=== PATIENT | male | born 1940 | race African-American/Black ===

== ENCOUNTER 2017-02-14 05:41 | Day surgery (SDC) | payer BC, OTHER ==
[~2017-02-14] VITALS: Ht 177.8 cm; Wt 83.6 kg
[~2017-02-14 05:41] MED LIST: ASPI81 PO; ATEN25 PO; ATOR40TA28 PO; BACI3.5O4 OP; CEPH250 PO; DIPH50 PO; ESCI10TA PO; IBUP-1546 PO; LEVO25TA9 PO; LISI-661 PO; METF10002 PO; MULT-1203 PO; PANT40TA25 PO; PREG50 PO; TICA90TA PO; Triamcinolone Acet TP
[2017-02-14] MEDS ORDERED: SODIUM CHLORIDE 0.9% 1,000 ML IV ONE (06:30)
[2017-02-14 06:43] LABS: GLUCOSE,POINT OF CARE 93 MG/DL (70-110)
[2017-02-14] MEDS ORDERED: LIDOCAINE HCL/PF 2% 5 ML VIAL INJ ONE (12:00)
[2017-02-14] MEDS ORDERED: PROPOFOL 1% 20 ML VIAL IVP ONE (12:00)
[2017-02-15] MEDS ORDERED: SODIUM CHLORIDE 0.9% 1,000 ML IV ONE (14:18)
== END 2017-02-14 10:30 | disposition home or self-care (01) ==
LOC: SURGERY 05:41
PROVIDERS: ATTEND Specialist
DX: Z09 Encounter for follow-up examination after completed treatment for conditions other than malignant neoplasm (principal); K64.8 Other hemorrhoids; K29.50 Unspecified chronic gastritis without bleeding; K57.90 Diverticulosis of intestine, part unspecified, without perforation or abscess without bleeding; B96.81 Helicobacter pylori [H. pylori] as the cause of diseases classified elsewhere; M54.9 Dorsalgia, unspecified; I25.10 Atherosclerotic heart disease of native coronary artery without angina pectoris; B35.1 Tinea unguium; M75.91 Shoulder lesion, unspecified, right shoulder; N40.0 Benign prostatic hyperplasia without lower urinary tract symptoms; E11.9 Type 2 diabetes mellitus without complications; E78.5 Hyperlipidemia, unspecified; B35.9 Dermatophytosis, unspecified; F32.9 Major depressive disorder, single episode, unspecified; Z79.82 Long term (current) use of aspirin; Z79.899 Other long term (current) drug therapy; Z79.4 Long term (current) use of insulin; Z95.5 Presence of coronary angioplasty implant and graft
CPT/HCPCS: 43239; 45378; 82962; 88305; 88312; C1769; J2704; J3490; J7030

== ENCOUNTER 2020-05-16 18:11 | Inpatient (IN) | payer BC, MEDICARE, OTHER ==
[~2020-05-16] VITALS: Ht 170.2 cm; Wt 75.0 kg
[~2020-05-16 18:11] MED LIST changes: +ASPI-728 PO; -ASPI81 PO; +ATEN-73 PO; -ATEN25 PO; +ESCI-8 PO; -ESCI10TA PO; +IBUP-1506 PO; -IBUP-1546 PO; +METF-446 PO; -METF10002 PO; +PANT-31 PO; -PANT40TA25 PO
[2020-05-16] MEDS ORDERED: TRAM50TA4 PO (18:47)
[2020-05-16] MEDS ORDERED: PROP10TA73 PO (18:47)
[2020-05-16] MEDS ORDERED: BISA-151 PO (18:47)
[2020-05-16] MEDS ORDERED: SENN8.8S6 PO (18:47)
[2020-05-16] MEDS ORDERED: SUVO15TA PO (18:47)
[2020-05-16] MEDS ORDERED: DULA0.75 SQ (18:47)
[2020-05-16] MEDS ORDERED: TRAZ-252 PO (18:47)
[2020-05-16] MEDS ORDERED: PYRI50CA PO (18:47)
[2020-05-16] MEDS ORDERED: NITR0.4T52 SL (18:47)
[2020-05-16] MEDS ORDERED: SIME80 PO (18:47)
[2020-05-16] MEDS ORDERED: INSLAN SQ (18:47)
[2020-05-16] MEDS ORDERED: SODIUM CHLORIDE 0.9% 1,000 ML IV ONE ×2 (19:00→21:30)
[2020-05-16] MEDS ORDERED: INSULIN REGULAR, HUMAN 100 UNITS/ML IVP ONE (19:00)
[2020-05-16] MEDS ORDERED: ONDANSETRON HCL 4 MG/2 ML VIAL IVP ONE (19:00)
[2020-05-16] MEDS ORDERED: SENN-277 PO (19:01)
[2020-05-16 20:24] LABS: BASOPHILS % (AUTO) 0.5 % (0.0-2.0); EOSINOPHILS % (AUTO) 1.2 % (1.0-6.0); HEMATOCRIT 47.7 % (41-53); HEMOGLOBIN 15.6 g/dL (13.5-17.5); LYMPHOCYTES # (AUTO) 1.3 K/uL (1.0-4.8); MEAN CORPUSCULAR HEMOGLOBIN 26.9 pg (26.0-34.0); MEAN CORPUSCULAR HGB CONC 32.8 G/dL (31.0-37.0); MEAN CORPUSCULAR VOLUME 82 fL (80-100); MONOCYTES # (AUTO) 0.5 K/uL (0.1-1.0); MONOCYTES % (AUTO) 9.7 % (2.0-9.0); NEUTROPHILS % (AUTO) 61.6 % (40.0-70.0); PLATELET COUNT (AUTO) 183 K/uL (150-450); RED BLOOD CELL COUNT(AUTO) 5.81 MIL/uL (4.50-5.90); RED CELL DISTRIBUTION WIDTH 15.9 % (11.5-14.5)
[2020-05-16] MEDS ORDERED: ASPIRIN 81 MG CHEWABLE TABLET PO ONE (20:30)
[2020-05-16] MEDS ORDERED: NITROGLYCERIN 2% (1 GM=INCH) PACKET TP ONE (20:30)
[2020-05-16 20:52] LABS: CALCIUM, TOTAL 9.5 mg/dL (8.8-10.5); CREATININE 1.54 mg/dL (0.60-1.30); POTASSIUM 5.2 mmol/L (3.5-5.1)
[2020-05-16 20:59] LABS: LACTIC ACID 1.7 mmol/L (0.4-2.0)
[2020-05-16 21:17] LABS: ALBUMIN 3.5 g/dL (3.4-5.0); BILIRUBIN,TOTAL 0.8 mg/dL (0.1-1.0); MAGNESIUM 2.1 mg/dL (1.80-2.40); TOTAL PROTEIN, SERUM 8.1 g/dL (6.4-8.2)
[2020-05-16] MEDS ORDERED: ACETAMINOPHEN 325 MG TABLET PO PRN ×2 (21:30)
[2020-05-16] MEDS ORDERED: ONDANSETRON HCL 4 MG/2 ML VIAL IVP PRN (21:30)
[2020-05-16] MEDS ORDERED: 0.9% SODIUM CHLORIDE 10 ML SYRINGE IVP PRN (21:30)
[2020-05-16] MEDS ORDERED: MAGNESIUM HYDROXIDE SUSPENSION 30 ML UDCUP PO PRN (21:30)
[2020-05-16] MEDS ORDERED: INSULIN GLARGINE,HUM.REC.ANLOG 100 UNITS/ML SQ SCH (21:30)
[2020-05-16] MEDS ORDERED: DEXTROSE 50%-WATER 25 GM/50 ML SYRINGE IVP PRN (21:30)
[2020-05-17] MEDS: HEPARIN SODIUM,PORCINE 5,000 UNITS/ML VIAL SQ SCH ×4 (00:25→23:20)
[2020-05-17 00:42] VITALS: BP 137/79
[2020-05-17 04:15] VITALS: BP 151/84
[2020-05-17] MEDS: INSULIN LISPRO 100 UNITS/ML SQ PRN ×4 (05:36→19:58)
[2020-05-17 07:19] LABS: ANION GAP 11 mmol/L (8-16); CALCIUM, TOTAL 9.4 mg/dL (8.8-10.5); CARBON DIOXIDE 23 mmol/L (22-29); CHLORIDE 96 mmol/L (98-107); CREATININE 1.18 mg/dL (0.60-1.30); GLUCOSE,RANDOM 346 mg/dL (70-110); SODIUM SERUM 130 mmol/L (136-145); UREA NITROGEN, BLOOD 25 mg/dL (7-18)
[2020-05-17 07:22] LABS: GLOMERULAR FILTR. RATE CALC > 60 mL/min (>60)
[2020-05-17 07:41] VITALS: BP 143/55
[2020-05-17] MEDS: ASPIRIN 81 MG CHEWABLE TABLET PO SCH (08:57)
[2020-05-17] MEDS: OxyCODONE HCL/ACETAMINOPHEN 5-325 MG TABLET PO PRN ×2 (08:58→16:39)
[2020-05-17] MEDS: DOCUSATE SODIUM 100 MG CAPSULE PO SCH ×2 (08:58→19:54)
[2020-05-17] MEDS ORDERED: FAMOTIDINE 20 MG TABLET PO SCH (09:00)
[2020-05-17 10:55] LABS: APPEARANCE,URINE CLEAR (CLEAR); BILIRUBIN,URINE NEGATIVE (NEGATIVE); GLUCOSE, URINE (UA) >=1000 mg/dL (NEGATIVE); KETONES,URINE NEGATIVE (NEGATIVE); LEUKOCYTE ESTERASE ,URINE NEGATIVE (NEGATIVE); NITRATE,URINE NEGATIVE (NEGATIVE); OCCULT BLOOD,URINE NEGATIVE (NEGATIVE); PH,URINE 6.5 (5.0-8.0); PROTEIN,URINE NEGATIVE (NEGATIVE); UROBILINOGEN,URINE 0.2 mg/dL (<=1.0)
[2020-05-17 11:01] LABS: BACTERIA,URINE None Seen /HPF (None Seen); RBC,URINE None Seen /HPF (0-2); WBC,URINE None Seen /HPF (0-5)
[2020-05-17 11:03] VITALS: BP 127/70
[2020-05-17 11:54] LABS: GLUCOMETER DEV NAME(LOC) 5S.1; GLUCOSE,POINT OF CARE 352 MG/DL (70-110)
[2020-05-17 15:43] VITALS: BP 145/79
[2020-05-17] MEDS ORDERED: MAGNESIUM CITRATE 300 ML ORAL SOLUTION PO ONE (16:45)
[2020-05-17] MEDS ORDERED: SENNA 187 MG TABLET PO PRN (17:00)
[2020-05-17] MEDS ORDERED: TraMADol HCL 50 MG TABLET PO PRN (17:00)
[2020-05-17] MEDS ORDERED: BISACODYL 5 MG EC TABLET PO PRN (17:00)
[2020-05-17] MEDS ORDERED: SIMETHICONE 80 MG CHEWABLE TABLET PO PRN (17:00)
[2020-05-17] MEDS: ATORVASTATIN CALCIUM 40 MG TABLET PO SCH (18:34)
[2020-05-17 19:08] LABS: GLUCOMETER DEV NAME(LOC) 5N.3; GLUCOSE,POINT OF CARE 285 MG/DL (70-110)
[2020-05-17 19:08] LABS: GLUCOMETER DEV NAME(LOC) 5N.3; GLUCOSE,POINT OF CARE 189 MG/DL (70-110)
[2020-05-17 19:08] LABS: GLUCOMETER DEV NAME(LOC) 5S.1; GLUCOSE,POINT OF CARE 364 MG/DL (70-110)
[2020-05-17 19:41] VITALS: BP 146/76
[2020-05-17] MEDS: PROPRANOLOL HCL 10 MG TABLET PO SCH (19:54)
[2020-05-17] MEDS: PREGABALIN 50 MG CAPSULE PO SCH (19:54)
[2020-05-17] MEDS ORDERED: INSULIN GLARGINE,HUM.REC.ANLOG 100 UNITS/ML SQ SCH (21:00)
[2020-05-17] MEDS ORDERED: SUVOREXANT 10 MG PO SCH (21:00)
[2020-05-17] MEDS ORDERED: TraZODone HCL 50 MG TABLET PO SCH (21:00)
[2020-05-18 01:32] VITALS: BP 123/66
[2020-05-18 03:45] VITALS: BP 138/50
[2020-05-18 05:05] LABS: GLUCOMETER DEV NAME(LOC) 5N.3; GLUCOSE,POINT OF CARE 241 MG/DL (70-110)
[2020-05-18] MEDS: INSULIN LISPRO 100 UNITS/ML SQ PRN ×2 (05:47→12:18)
[2020-05-18] MEDS ORDERED: LEVOTHYROXINE SODIUM 25 MCG TABLET PO SCH (06:30)
[2020-05-18 07:43] LABS: GLUCOMETER DEV NAME(LOC) 5N.3; GLUCOSE,POINT OF CARE 289 MG/DL (70-110)
[2020-05-18 08:29] VITALS: BP 105/75
[2020-05-18] MEDS: ATORVASTATIN CALCIUM 40 MG TABLET PO SCH (08:35)
[2020-05-18] MEDS: ASPIRIN 81 MG CHEWABLE TABLET PO SCH (08:35)
[2020-05-18] MEDS: DOCUSATE SODIUM 100 MG CAPSULE PO SCH (08:35)
[2020-05-18] MEDS: PREGABALIN 50 MG CAPSULE PO SCH (08:35)
[2020-05-18] MEDS: PROPRANOLOL HCL 10 MG TABLET PO SCH (08:36)
[2020-05-18] MEDS ORDERED: PYRIDOXINE HCL 50 MG TABLET PO SCH (09:00)
[2020-05-18] MEDS ORDERED: MULTIVITAMINS, THERAPEUTIC TABLET PO SCH (09:00)
[2020-05-18] MEDS ORDERED: PANTOPRAZOLE SODIUM 40 MG DR TABLET PO SCH (09:00)
[2020-05-18] MEDS ORDERED: LISINOPRIL 10 MG TABLET PO SCH (09:00)
[2020-05-18] MEDS: HEPARIN SODIUM,PORCINE 5,000 UNITS/ML VIAL SQ SCH (09:51)
[2020-05-18 11:47] VITALS: BP 139/96
[2020-05-19 03:23] LABS: GLUCOMETER DEV NAME(LOC) 5S.1; GLUCOSE,POINT OF CARE 336 MG/DL (70-110)
== END 2020-05-18 15:00 | disposition home or self-care (01) | DRG 392 ==
LOC: EMS 18:13 → 5S 21:27
PROVIDERS: ADMIT Internal Medicine; ATTEND Internal Medicine
DX: K21.9 Gastro-esophageal reflux disease without esophagitis (principal); N17.9 Acute kidney failure, unspecified; E87.1 Hypo-osmolality and hyponatremia; E87.5 Hyperkalemia; E11.65 Type 2 diabetes mellitus with hyperglycemia; E78.5 Hyperlipidemia, unspecified; F32.9 Major depressive disorder, single episode, unspecified; I10 Essential (primary) hypertension; E03.9 Hypothyroidism, unspecified; K59.00 Constipation, unspecified; E11.40 Type 2 diabetes mellitus with diabetic neuropathy, unspecified; Z79.899 Other long term (current) drug therapy
CPT/HCPCS: 74176; 82271; 83605; 83735; 87040; 87081; 93005; 93306; J1644; J1815; J2405; J7030; 36415-L1; 36415-TC; 71045-TC